=== PATIENT | male | born 1960 | race Caucasian/White ===

== ENCOUNTER 2018-05-26 14:48 | Emergency (ER) | payer BC ==
[2018-05-26 15:01] VITALS: RESP 16; TEMP 98.1
[2018-05-26] MEDS ORDERED: DIPH,PERTUS(ACELL)TETVAC-LF 0.5 ML VIAL IM ONE (15:18)
[2018-05-26] MEDS ORDERED: LIDOCAINE 1% INJ 10MG/ML (20 ML MDV) SQ STA ×2 (15:21→16:29)
--- NOTE | 2018-05-26 15:23 | ED ---
General Adult HPI - General Chief complaint: Wound/Laceration Stated complaint: Leg lac Time Seen by Provider: 05/26/18 15:15 Source: patient, family, RN notes reviewed Mode of arrival: wheelchair Limitations: no limitations - History of Present Illness Initial comments: Patient is a 57-year-old male presented to the emergency room today with chief complaint of laceration to the right lower extremity. Patient does admit that he was using a chainsaw when he slipped when he was cutting down a tree and hit his right leg causing this laceration. He states is unsure of his tetanus status. He does make to pain locally at the site of the laceration. He states he was able to continue to ambulate and walk. He denies any other complaints or symptoms. Patient denies any recent fever, chills, shortness of breath, chest pain, back pain, abdominal pain, nausea or vomiting, headaches or visual changes, or any other complaints. - Related Data Previous Rx's Medication Instructions Recorded Cephalexin [Keflex] 500 mg PO Q12HR 10 Days cap 05/26/18 Allergies Allergy/AdvReac Type Severity Reaction Status Date / Time No Known Allergies Allergy Verified 05/26/18 15:01 Review of Systems ROS Statement: Those systems with pertinent positive or pertinent negative responses have been documented in the HPI. ROS Other: All systems not noted in ROS Statement are negative. Past Medical History Additional Past Medical History / Comment(s): cyst on back of neck getting removed next week. History of Any Multi-Drug Resistant Organisms: None Reported Past Surgical History: No Surgical Hx Reported Additional Past Surgical History / Comment(s): cyst removal Past Psychological History: No Psychological Hx Reported Smoking Status: Never smoker Past Alcohol Use History: None Reported Past Drug Use History: None Reported General Exam - General Exam Comments Initial Comments: General: The patient is awake and alert, in no distress, and does not appear acutely ill. Neck: The neck is supple, there is no tenderness or JVD. Musculoskeletal: Normal ROM Strength 5/5. Sensation intact. Pulses equal bilaterally 2+. Neurological: A&O x 3. CN II-XII intact, There are no obvious motor or sensory deficits. Coordination appears grossly intact. Speech is normal. Skin: Large laceration located to the right lower lateral leg. No active bleeding. Psychiatric: Cooperative, appropriate mood & affect, normal judgment. Limitations: no limitations Course Vital Signs 05/26/18 05/26/18 14:57 16:04 Temperature 98.1 F Pulse Rate 96 80 Respiratory 16 16 Rate Blood Pressure 129/84 137/95 O2 Sat by Pulse 96 98 Oximetry Procedures - Procedures Initial comment: 15 cm laceration to the lateral aspect of the right leg. Area was prepped and cleaned with saline. Anesthetized locally with 1% lidocaine. Area was heavily irrigated under pressure with normal saline. Complex wound repair was required. A total of 4 subcu stitches were placed of 4-0 Vicryl. A total of 15 simple interrupted sutures were placed of 3-0 nylon. In between these 15 stitches a total of 6 horizontal mattress sutures were placed for a total of 21 nylon sutures. Medical Decision Making - Medical Decision Making X-rays negative for any fracture dislocation or foreign body. Patient's laceration site was irrigated heavily and approximated closed here in emergency room. Tetanus updated. Patient will be started on antibiotics of Keflex. Disposition Clinical Impression: Laceration Disposition: HOME SELF-CARE Condition: Good Instructions: Laceration (DC) Additional Instructions: Please return to the emergency room in 10-14 days to have sutures removed. Please watch for any signs of infection which may include increased pain, swelling, redness, fever or chills. Please return to emergency room for any signs of infection do occur. Please use clean soap and water over the area to prevent scabbing over your stitches. Please leave wound covered for the first 24-48 hours and then leave wound open to air. Please return to the emergency room for any other concerns. Prescriptions: Cephalexin [Keflex] 500 mg PO Q12HR 10 Days cap Is patient prescribed a controlled substance at d/c from ED?: No Referrals: Flex Lee MD [Primary Care Provider] - 1-2 days Time of Disposition: 17:39
--- NOTE | 2018-05-26 15:53 | XR ---
EXAMINATION TYPE: XR tibia fibula RT DATE OF EXAM: 05/26/2018 COMPARISON: NONE HISTORY: Laceration TECHNIQUE: 4 views FINDINGS: There is some soft tissue deformity over the lateral aspect of the lower fibula consistent with laceration. There are plantar and Achilles calcaneal spurs. I see no fracture nor dislocation. T here is no sign of a foreign body. IMPRESSION: Soft tissue deformity over the lateral aspect of the lower leg. No fracture seen.
[2018-05-26 18:21] VITALS: BP 137/87; PULSE 77
== END 2018-05-26 18:05 | disposition home or self-care (01) ==
LOC: EC 14:48
DX: S81.811A Laceration without foreign body, right lower leg, initial encounter (principal); Z23 Encounter for immunization; W31.2XXA Contact with powered woodworking and forming machines, initial encounter
CPT/HCPCS: 73590; 90715; 99283; 12035; 90471; J2001

== ENCOUNTER → 2019-02-26 | Outpatient (CLI) | payer BC ==
--- NOTE | 2019-02-26 16:02 | US ---
EXAMINATION TYPE: US kidneys/renal and bladder DATE OF EXAM: 02/26/2019 COMPARISON: NONE CLINICAL HISTORY: N17.9 Acute Kidney injury. Pt states recent abnormal labs EXAM MEASUREMENTS: Right Kidney: 11.9 x 6.2 x 6.1 cm Left Kidney: 11.1 x 5.0 x 5.2 cm Right Kidney: Appeared wnl Left Kidney: Appeared wnl Bladder: Appeared wnl Bilateral Jets seen: Only right jet visualized There is no evidence for hydronephrosis at this point in time. No nephrolithiasis is seen. No sergio s are identified. The urinary bladder is not greatly distended. Bilateral ureteral jets are not see n. IMPRESSION: No hydronephrosis is noted bilaterally.
== END | disposition home or self-care (01) ==
LOC: RADUSWWP 15:38
PROVIDERS: ATTEND Internal Medicine
DX: N17.9 Acute kidney failure, unspecified (principal)
CPT/HCPCS: 76770

== ENCOUNTER → 2020-08-12 | Outpatient (CLI) | payer BC ==
--- NOTE | 2020-08-12 22:53 | XR ---
EXAMINATION TYPE: XR lumbar spine 2 or 3V DATE OF EXAM: 08/12/2020 CLINICAL HISTORY: Low back pain after waking up in the morning. TECHNIQUE: Frontal and lateral images of the lumbar spine are obtained. COMPARISON: None FINDINGS: There are 5 lumbar type vertebral bodies identified. The lumbar spine shows straightened alignment without evidence of acute fracture or dislocation. Vertebral body heights and disk space he ights are within normal limits. The overlying soft tissue appears unremarkable. IMPRESSION: As above.
== END ==
LOC: RADXRMAIN 15:58
PROVIDERS: ATTEND Internal Medicine
DX: M54.5 Low back pain (principal)
CPT/HCPCS: 72100